=== PATIENT | male | born 1955 | race African-American/Black ===

== ENCOUNTER 2019-01-14 16:42 | Inpatient (IN) | payer MEDICAID ==
[~2019-01-14] VITALS: Ht 172.7 cm; Wt 54.9 kg
[2019-01-14] VITALS (7 sets, daily range): BP systolic 205–258; BP diastolic 118–151
--- NOTE | 2019-01-14 16:54 | NUR ---
ED Nurse Note: Patient was brought by RA 58, complaining of generalized pain. Verbalized /. Grimacing noted. Patient is moaning and yelling because of pain. Resident stated that he missed dialysis treatment for 1 week.
--- NOTE | 2019-01-14 17:02 | Emergency Room Report ---
History of Present Illness General Chief Complaint: Pain Present Illness HPI Patient is a 63-year-old male brought in by EMS after increased generalized body aches and pains. Patient reports having missed dialysis and was last dialyzed 4 days ago. Patient denies any fever. He states he was moving and could not make his appointments. Patient reports having generalized body pain. He cannot member the names of his doctors. Allergies: Coded Allergies: No Known Allergies (Unverified , 01/14/19) Patient History Past Medical History: see triage record Reviewed Nursing Documentation: PMH: Agreed; PSxH: Agreed Nursing Documentation-PMH Hx Hypertension: Yes Review of Systems All Other Systems: negative except mentioned in HPI Physical Exam Vital Signs Date Time Temp Pulse Resp B/P (MAP) Pulse Ox O2 Delivery O2 Flow Rate FiO2 01/14/19 16:42 98.2 82 18 241/149 (179) 98 Room Air Sp02 EP Interpretation: reviewed, normal General Appearance: alert, GCS 15, Chronically Ill Head: atraumatic ENT: normal ENT inspection, hearing grossly normal, normal voice Neck: normal inspection, full range of motion, supple, no bony tend Respiratory: normal inspection, lungs clear, normal breath sounds, no respiratory distress, no retraction, no wheezing Cardiovascular #1: regular rate, rhythm, no edema Gastrointestinal: normal inspection, normal bowel sounds, non tender, soft, no guarding, no hernia Genitourinary: no CVA tenderness Musculoskeletal: normal inspection, back normal, normal range of motion Neurologic: normal inspection, alert, oriented x3, responsive, ager operator III-XII nml as tested, speech normal Psychiatric: normal inspection, judgement/insight normal, mood/affect normal Procedures Critical Care Time Critical Care Time Patient had a critical medical condition which untreated could potentially result in life or limb threatening injury. Total critical care time excluding procedures approximately 45 minutes. Medical Decision Making Diagnostic Impression: Primary Impression: ESRD (end stage renal disease) Additional Impressions: Missed dialysis Hyperkalemia Hypertensive crisis, unspecified ER Course Patient presented for generalized pain and shortness of breath. Differential diagnosis include is not limited to have fluid overload, hyperkalemia, hypertensive crisis, myocardial infarction among others. Because of complexity of patient's case laboratory tests and imaging studies were ordered. Patient was noted to have significantly elevated blood pressure as well as recently missed dialysis. He was given multiple medications for hypertension with minimal change in his blood pressure. Chest x-ray 1 view read by radiology showed bilateral interstitial edema and problems consistent with fluid overload. See radiology report for full details. Patient given some pain medications due to discomfort.Patient was noted to be significantly hyperkalemic. Arterial blood gas showed some metabolic acidosis without evidence of respiratory alkalosis. Patient was started on BiPAP for fluid overload and shortness of breath with some improvement in his oxygen saturation.He was given insulin as well as D50 and Kayexalate as well as IV calcium. Dr. Dey was contacted for inpatient management. Dr. Castillo is contacted for nephrology consult for emergent dialysis Labs Test 01/14/19 17:22 01/14/19 18:40 01/14/19 19:50 White Blood Count 5.0 K/UL (4.8-10.8) Red Blood Count 5.23 M/UL (4.70-6.10) Hemoglobin 14.5 G/DL (14.2-18.0) Hematocrit 47.9 % (42.0-52.0) Mean Corpuscular Volume 92 FL (80-99) Mean Corpuscular Hemoglobin 27.7 PG (27.0-31.0) Mean Corpuscular Hemoglobin Concent 30.3 G/DL (32.0-36.0) Red Cell Distribution Width 18.2 % (11.6-14.8) Platelet Count 117 K/UL (150-450) Mean Platelet Volume 6.6 FL (6.5-10.1) Neutrophils (%) (Auto) 64.4 % (45.0-75.0) Lymphocytes (%) (Auto) 26.3 % (20.0-45.0) Monocytes (%) (Auto) 5.2 % (1.0-10.0) Eosinophils (%) (Auto) 3.1 % (0.0-3.0) Basophils (%) (Auto) 1.0 % (0.0-2.0) Prothrombin Time 10.4 SEC (9.30-11.50) Prothromb Time International Ratio 1.0 (0.9-1.1) Activated Partial Thromboplast Time 25 SEC (23-33) Sodium Level 143 MMOL/L (136-145) Potassium Level 6.5 MMOL/L (3.5-5.1) Chloride Level 104 MMOL/L (98-107) Carbon Dioxide Level 20 MMOL/L (21-32) Anion Gap 19 mmol/L (5-15) Blood Urea Nitrogen 92 mg/dL (7-18) Creatinine 19.5 MG/DL (0.55-1.30) Estimat Glomerular Filtration Rate 2.9 mL/min (>60) Glucose Level 102 MG/DL (74-106) Calcium Level 7.8 MG/DL (8.5-10.1) Total Bilirubin 0.5 MG/DL (0.2-1.0) Aspartate Amino Transf (AST/SGOT) 24 U/L (15-37) Alanine Aminotransferase (ALT/SGPT) 17 U/L (12-78) Alkaline Phosphatase 144 U/L (46-116) Troponin I 0.003 ng/mL (0.000-0.056) Total Protein 8.2 G/DL (6.4-8.2) Albumin 3.4 G/DL (3.4-5.0) Globulin 4.8 g/dL Albumin/Globulin Ratio 0.7 (1.0-2.7) Arterial Blood pH 7.363 (7.350-7.450) Arterial Blood Partial Pressure CO2 32.1 mmHg (35.0-45.0) Arterial Blood Partial Pressure O2 73.7 mmHg (75.0-100.0) Arterial Blood HCO3 17.9 mmol/L (22.0-26.0) Arterial Blood Oxygen Saturation 93.6 % (95-100) Arterial Blood Base Excess -6.5 (-2-2) Carroll Test Positive EKG Diagnostic Results Rate: normal Rhythm: NSR ST Segments: no acute changes Last Vital Signs Date Time Temp Pulse Resp B/P (MAP) Pulse Ox O2 Delivery O2 Flow Rate FiO2 01/14/19 16:42 98.2 82 18 241/149 (179) 98 Room Air Status: unchanged Disposition: ADMITTED INPATIENT Condition: Critical Duane Luna MD Jan 14, 2019 17:02
--- NOTE | 2019-01-14 17:30 | NUR ---
ED Nurse Note: RN attempted to establish IV, but unsucessful at this time. Report given to ARNOL Conti.
[2019-01-14 17:44] LABS: EOSINOPHILS % (AUTO) 3.1 % (0.0-3.0); HEMATOCRIT 47.9 % (42.0-52.0); HEMOGLOBIN 14.5 G/DL (14.2-18.0); LYMPHOCYTES % (AUTO) 26.3 % (20.0-45.0); MEAN CORPUSCULAR VOLUME 92 FL (80-99); MONOCYTES % (AUTO) 5.2 % (1.0-10.0); NEUTROPHILS % (AUTO) 64.4 % (45.0-75.0); PLATELET COUNT 117 K/UL (150-450); RED BLOOD COUNT 5.23 M/UL (4.70-6.10); RED CELL DISTRIBUTION WIDTH 18.2 % (11.6-14.8)
--- NOTE | 2019-01-14 17:50 | NUR ---
ED Nurse Note: noted pt uncontrolled BP, systolic above 200 and diastolic above 100s, ERMd notified, will follow up with order.
[2019-01-14] MEDS ORDERED: cloNIDine 0.2mg Tab ONE (17:55)
[2019-01-14] MEDS ORDERED: Morphine Sulfate 4mg/ml Inj (IV USE ONLY) ONE (17:55)
[2019-01-14] MEDS ORDERED: cloNIDine 0.2mg Tab ORAL ONE (18:00)
[2019-01-14] MEDS ORDERED: Morphine Sulfate 4mg/ml Inj (IV USE ONLY) IVP ONE ×2 (18:00→20:00)
[2019-01-14] MEDS ORDERED: Nitroglycerin Subl 0.4mg tab SL PRN (18:00)
[2019-01-14] MEDS ORDERED: DiphenhydrAMINE 50mg/ml Inj ONE (18:03)
[2019-01-14] MEDS ORDERED: CARVEDILOL12.5 MG ORAL (18:07)
[2019-01-14] MEDS ORDERED: RENAGEL800 MG ORAL (18:07)
[2019-01-14] MEDS ORDERED: LOSARTAN POTASS50 MG ORAL (18:07)
[2019-01-14] MEDS ORDERED: ADALAT10 MG ORAL (18:07)
[2019-01-14] MEDS ORDERED: LIPITOR80 MG ORAL (18:07)
[2019-01-14] MEDS ORDERED: DiphenhydrAMINE 50mg/ml Inj IVP ONE (18:15)
[2019-01-14] MEDS ORDERED: Albuterol ud Inhalation HHN ONE (18:30)
[2019-01-14] MEDS ORDERED: IBUPROFEN600 MG ORAL (18:39)
[2019-01-14] MEDS ORDERED: LABETALOL HCL100 MG ORAL (18:39)
[2019-01-14] MEDS ORDERED: AMLODIPINE BESY10 MG ORAL (18:39)
[2019-01-14] MEDS ORDERED: ZOFRAN4 M3 ORAL (18:39)
[2019-01-14] MEDS ORDERED: HYDRALAZINE HCL10 MG ORAL (18:39)
[2019-01-14] MEDS ORDERED: HEPARIN2000 UNIT/ IV (18:39)
--- NOTE | 2019-01-14 18:40 | NUR ---
ED Nurse Note: pt on bipap. 03/17, rate 12, 80%. will cont monitor.
[2019-01-14] MEDS ORDERED: CLONIDINE HCL0.1 MG PO (18:43)
[2019-01-14] MEDS ORDERED: ZEMPLAR5 MCG/ML IV (18:43)
[2019-01-14] MEDS ORDERED: LIQUACEL 100 LI30 ML PO (18:43)
--- NOTE | 2019-01-14 18:50 | NUR ---
ED Nurse Note: noted pt O2 97% on bipap and after breathing tx. will cont monitor.
[2019-01-14 19:08] LABS: ALANINE AMINOTRANSFERASE 17 U/L (12-78); ALBUMIN 3.4 G/DL (3.4-5.0); ALBUMIN/GLOBULIN RATIO 0.7 (1.0-2.7); ALKALINE PHOSPHATASE 144 U/L (46-116); ANION GAP 19 mmol/L (5-15); ASPARTATE AMINO TRANSFERASE 24 U/L (15-37); BILIRUBIN,TOTAL 0.5 MG/DL (0.2-1.0); BLOOD UREA NITROGEN 92 mg/dL (7-18); CALCIUM 7.8 MG/DL (8.5-10.1); CARBON DIOXIDE 20 MMOL/L (21-32); CHLORIDE 104 MMOL/L (98-107); CREATININE 19.5 MG/DL (0.55-1.30); SODIUM 143 MMOL/L (136-145)
--- NOTE | 2019-01-14 19:24 | Diagnostic Imaging Report ---
History: CP Exam: XR CXR 1 VIEW Comparison: None available FINDINGS: Moderate appearing bilateral ill-defined perihilar opacities which may represent pulmonary edema, clinically correlate. Right-sided tunneled dialysis catheter noted. The cardiac silhouette appears enlarged. Ectatic thoracic aorta. Note of cervical spinal hardware. IMPRESSION: Moderate appearing bilateral ill-defined perihilar opacities which may represent pulmonary edema, clinically correlate. Right-sided tunneled dialysis catheter noted. The cardiac silhouette appears enlarged.
[2019-01-14 19:50] LABS: POTASSIUM 6.5 MMOL/L (3.5-5.1)
--- NOTE | 2019-01-14 19:50 | NUR ---
ED Nurse Note: ERMD aware of pt's elevated potassium level, 6.5, will follow up with order.
--- NOTE | 2019-01-14 19:55 | NUR ---
ED Nurse Note: pt refusing to be on bipap, ERMD notified, pt was placed on o2 via nc. pt reports pain generalized bodyache, ermd notified will follow up with order.
[2019-01-14] MEDS ORDERED: Calcium Chloride 100mg/ml Vial IVP ONE (20:00)
[2019-01-14] MEDS ORDERED: Sodium Polystyrene Sulfonate 15gm Powder ORAL ONE (20:00)
[2019-01-14] MEDS ORDERED: Insulin Human Regular 100units/ml 3ml IV ONE (20:00)
[2019-01-14] MEDS ORDERED: Labetalol 200mg tab ORAL ONE (20:00)
[2019-01-14] MEDS ORDERED: Heparin Sod 1000 units/ml 10ml IV PRN (20:15)
--- NOTE | 2019-01-14 20:30 | NUR ---
ED Nurse Note: pt's blood pressure uncontrolled, persistent above 200/100s, ermd notified.
--- NOTE | 2019-01-14 20:50 | NUR ---
ED Nurse Note: noted pt's iv site on right hand with tendernss and mild swelling, ermd notified. ERMD at the bedside for iv insertion. 22 g R EJ inserted peripherally by ERMD, dressing applied. pt tolerated well.
[2019-01-14] MEDS ORDERED: Labetalol 5mg/ml 20ml vial IV ONE (21:00)
--- NOTE | 2019-01-14 21:00 | NUR ---
ED Nurse Note: pt refused vre/cre swab. pt verbalized understanding.
--- NOTE | 2019-01-14 21:05 | NUR ---
ED Nurse Note: ermd aware of pt's blood pressure after administration of medication (refer to EMAR), will follow up with order.
--- NOTE | 2019-01-14 21:20 | History & Physical ---
History and Physical History & Physicial History and Physical HPI Patient is a 63-year-old male with history of CKD on HD, Hypertension, admitted c/o generalized body aches and pains. Patient reports having missed dialysis and was last dialyzed 4 days ago. Patient denies any fever. No current chest pain, some shortness of breath, noted to be fluid overloaded, hyperkalemic in the ED Allergies: No Known Allergies Past Medical History: CKD, HD, Hypertension All Other Systems: negative except mentioned in HPI Physical Exam Vital Signs Noted Date Time Temp Pulse Resp B/P (MAP) Pulse Ox O2 Delivery O2 Flow Rate FiO2 01/14/19 16:42 98.2 82 18 241/149 (179) 98 Room Air General Appearance: alert, GCS 15, Chronically Ill Head: atraumatic ENT: normal ENT inspection, hearing grossly normal, normal voice Neck: normal inspection, full range of motion, supple, no bony tend Respiratory: normal inspection, lungs clear, normal breath sounds, no respiratory distress, no retraction, no wheezing Cardiovascular: regular rate, rhythm, no edema, HS1, HS2 normal Gastrointestinal: normal inspection, normal bowel sounds, non tender, soft, no guarding, no hernia Genitourinary: no CVA tenderness Musculoskeletal: normal inspection, back normal, normal range of motion Neurologic: normal inspection, alert, oriented x3, responsive, report manager III-XII nml as tested, speech normal Psychiatric: normal inspection, judgement/insight normal, mood/affect normal Impression: CKD Missed HD Volume overloaded, hyperkalemic Hypertension Plan: Urgent HD, ED has contacted Dr Hernandez Antihypertensives Monitor labs PPX O2/Bipap EKG LVH, SR, no acute changes CXR Pulmonary congestion, Labs Noted, Ranulfo Henley MD Jan 14, 2019 21:20
--- NOTE | 2019-01-14 21:26 | NUR ---
ED Nurse Note: report given to Rn HECTOR from ICU (SDU overflow.
--- NOTE | 2019-01-14 21:30 | NUR ---
ED Nurse Note: pt transferred to ICU (SDU) over flow and report was given to RN Radhika and endorsed care, belongings sent w/ pt w/ completed list, iv intact and patent, receiving rn aware of pt's condition. called RT for transfer of bipap as well. pt on o2 via NC = 4L/min at this time, sinus rhythm on fabrication technician. receiving rn notified pt refused cre vre swab as well.
--- NOTE | 2019-01-14 21:40 | NUR ---
NURSE NOTES: Admitted 63 year old male patient from ER. Endorsement received from ARNOL Conti. Patient awake, oriented x3. On 3 LPM nasal cannula. Right subclavian permacath, right EJ g 22, right hand g20. Right EJ noted with good blood return. Right hand heplock with pain when flushed, removed. Skin is intact. Head of bed elevated bed alarm on. Locked and in low position. Call light placed within visible reached. Instructed patient on how to use call light, verbalized understanding.
--- NOTE | 2019-01-14 22:00 | NUR ---
NURSE NOTES: With Stat dialysis orders from Dr. Felipe. Called the [facility] and spoke with Neeta. As per her she will call the pulmonology physician dialysis nurse and will send someone velasquez.
[2019-01-14] MEDS ORDERED: Sodium Polystyrene Sulfon/Sorb 15gm/60ml Susp ORAL ONE (22:15)
[2019-01-14] MEDS ORDERED: Nitroglycerin 50mg/250ml btl 250 ML IV PRN (22:15)
--- NOTE | 2019-01-14 22:15 | NUR ---
NURSE NOTES: Received admission orders per telephone from Dr. Henley. Orders read back and confirmed by the MD.
[2019-01-14] MEDS ORDERED: Metoprolol Tartrate 50mg tab ORAL ONE (22:30)
--- NOTE | 2019-01-14 22:30 | NUR ---
NURSE NOTES: Patient refused VRE and CRE swabs, also refused BiPAP. 99% saturation on the monitor. Risks and benefits explained x3, still refused. Patient's rights respected.
--- NOTE | 2019-01-14 23:00 | NUR ---
NURSE NOTES: Followed up with [facility] regarding ETA for the dialysis, as per them someone is already on their way to [facility]
[2019-01-15] VITALS (50 sets, daily range): BP systolic 142–241; BP diastolic 83–166
--- NOTE | 2019-01-15 | NUR ---
NURSE NOTES: Patient awake. PRN medication for BP not given due to pending STAT dialysis. Still reports of being cold, temperature 97.5. Continues on warming blanket.
--- NOTE | 2019-01-15 00:30 | NUR ---
NURSE NOTES: Called [facility] to follow up regarding the dialysis. As per the staff, the dialysis nurse is currently having a patient right now and will be at [facility] after he's done.
--- NOTE | 2019-01-15 01:00 | NUR ---
NURSE NOTES: Dialysis nurse at bedside
--- NOTE | 2019-01-15 03:00 | NUR ---
NURSE NOTES: Dialysis done, as per HD nurse 1L output. SBP still at 200s mmHG. PRN Hydralazine given.
--- NOTE | 2019-01-15 04:30 | NUR ---
NURSE NOTES: Patient restless and shouting. Reoriented patient, assessed for needs. Patient does not report any pain. Vomited about 100 ml clear to light brownish sputum. PRN Zofran given. IV access dislodged. Attempted to insert a new one, however unsuccessful. Dr. Casiano will come and insert an IV access.
--- NOTE | 2019-01-15 05:00 | NUR ---
NURSE NOTES: IV g [address] Casiano at right EJ. Nitroglycerin restarted at 10mcg/min.
[2019-01-15 05:28] LABS: BASOPHILS % (AUTO) 0.4 % (0.0-2.0); EOSINOPHILS % (AUTO) 0.1 % (0.0-3.0); HEMATOCRIT 45.3 % (42.0-52.0); HEMOGLOBIN 14.1 G/DL (14.2-18.0); LYMPHOCYTES % (AUTO) 12.9 % (20.0-45.0); MEAN CORPUSCULAR VOLUME 90 FL (80-99); MONOCYTES % (AUTO) 5.1 % (1.0-10.0); NEUTROPHILS % (AUTO) 81.6 % (45.0-75.0); PLATELET COUNT 124 K/UL (150-450); RED BLOOD COUNT 5.06 M/UL (4.70-6.10); RED CELL DISTRIBUTION WIDTH 19.4 % (11.6-14.8); WHITE BLOOD COUNT 7.3 K/UL (4.8-10.8)
[2019-01-15 06:04] LABS: ANION GAP 18 mmol/L (5-15); BLOOD UREA NITROGEN 87 mg/dL (7-18); CALCIUM 8.4 MG/DL (8.5-10.1); CARBON DIOXIDE 21 MMOL/L (21-32); CHLORIDE 104 MMOL/L (98-107); CREATININE 19.1 MG/DL (0.55-1.30); SODIUM 143 MMOL/L (136-145)
--- NOTE | 2019-01-15 06:26 | NUR ---
NURSE NOTES: K is 6.0, paged Dr. Felipe on his emergency pager. Awaiting for return call
--- NOTE | 2019-01-15 07:01 | NUR ---
HAND-OFF: Report given to Mercy Hernandez RN.
--- NOTE | 2019-01-15 07:02 | NUR ---
NURSE NOTES: Received patient from ARNOL Garrido. Patient blood pressure is elevated at 180/110. Patient was given multiple medications to reduce the blood pressure but it remains elevated. Patient is now on Nitroglycerin drip at 20mcg/min. Will continue to monitor blood pressure and titrate drip per protocol. Patient denies pain, nausea, or discomfort at this time. Patient states that he is cold. Temperature 98.3 at this time. Bear hugger set up for patient per patient request. Patient alert to date, time, person, place, and purpose. Patient on 3L nasal cannula. Rhonchi audible in all lobes. Patent denies respiratory distress and states that he feels he is breathing much better than last night. Patient oxygen saturation 99% and RR 15 at this time. Patient has permicath for hemodialysis on right upper chest. dressing intact but not correct dressing for central line. Will change to proper dressing when possible. Patient has right external jugular peripheral IV 30 gauge that is patent, asymptomatic, and running nitroglycerin drip at 20mcg/hr at this time. Patient uses urinal. Patient has serum potassium level of 6.[address] Hernandez has been paged. Will page doctor again at this time. Will continue to monitor and administer medications as ordered. Patient repositions on his own. Toothbrush and toothpaste offered.
--- NOTE | 2019-01-15 07:32 | NUR ---
NURSE NOTES: Paged Dr Hernandez regarding potassium 6.0, consistent elevated blood pressure above 160, serum BUN 87, and Creatinine 19.1. Awaiting call back at this time. Addendum: 01/15/19 at 1044 by Mercy Hernandez RN Dr Hernandez called back. Updated him regarding lab values stated above and notified him that Dr Henley ordered Kayexalate 15g once. Dr Hernandez stated that he would order dialysis for the patient.
--- NOTE | 2019-01-15 07:50 | NUR ---
NURSE NOTES: Called and spoke with Dr Henley. Notified him regarding Potassium serum value of 6.0 this morning, consistent elevated blood pressure >170 systolic, and absence of GI and DVT prophylaxis medication. Received telephone order for clonidine 0.2mg PO PRN Q8Hr for blood pressure over 160, Kayexalate 15grams PO once now, Protonix 40mg PO daily, and heparin 5000units SQ BID. Orders read back, verified, and placed at this time.
[2019-01-15] MEDS: Sodium Polystyrene Sulfonate 15gm Powder ORAL SCH ×2 (08:00→08:16)
--- NOTE | 2019-01-15 09:25 | NUR ---
NURSE NOTES: Called [facility] to report hemodialysis scheduled for today routine between 6am and 6pm. Also reported that patient has serum potassium level of 6.0 this morning and dialysis should be performed soon. Awaiting call back and confirmation from dialysis nurse.
[2019-01-15] MEDS: Metoprolol Tartrate 50mg tab ORAL SCH ×2 (09:39→20:44)
[2019-01-15] MEDS: Heparin 5000 units/ml inj SUBQ SCH ×2 (09:43→20:45)
--- NOTE | 2019-01-15 09:47 | NUR ---
NURSE NOTES: Kayexalate scanned and mixed in water at this time. Patient refusing to drink it at this time. The purpose of this medication was thoroughly explained to the patient in addition to the complications that may result if his potassium remains elevated. The charge nurse and myself stressed to the patient the importance of this medication. Patient states that he understands but does not wish to take the medication at this time. Patient states that he will take the medication a little later. Will continue to stress the importance of this medication and dispose of the medication if the patient continues to refuse it.
--- NOTE | 2019-01-15 10:00 | NUR ---
NURSE NOTES: Patient Blood pressure 216/112 at this time. Clonidine 0.2mg given over an hour ago with no effect on blood pressure. Called and left message on Dr Henley emergency line. Awaiting call back. Nitro drip increased to 35mcg/min at this time. Will administer Hydralazine as ordered at this time. Will continue to monitor.
--- NOTE | 2019-01-15 11:20 | NUR ---
NURSE NOTES: Spoke with Dr Dent regarding patient's condition. Notified him regarding patient's elevated blood pressure. Doctor stated that the patient is not to be given blood pressure medications at all until after hemodialysis even if systolic blood pressure reaches 250mmHg. Notified him that the patient is on Nitroglycerin drip. Dr Dent ordered that Nitro drip be stopped. IV infusion stopped and line flushed at this time.
[2019-01-15] MEDS ORDERED: Miralax 17gm pkt ORAL PRN (11:30)
--- NOTE | 2019-01-15 11:35 | NUR ---
NURSE NOTES: Called [facility] to report hemodialysis scheduled for tomorrow 01/16 between 6am and 6pm. They reported that they would send the message to the dialysis nurse. Notified them that I have not yet received a call from the dialysis nurse regarding dialysis scheduled for today. They reported that they would ask for the dialysis nurse to call to confirm the time he/she will be arriving today.
[2019-01-15] MEDS: HydrALAZINE 50mg tab ORAL SCH ×2 (12:00→18:44)
--- NOTE | 2019-01-15 12:00 | NUR ---
NURSE NOTES: Patient blood pressure remains elevated at 180/108. All blood pressure medications held at this time per Dr Dent. Dr Dent is aware of BP. Will continue to monitor blood pressure. Patient states that he has pain 10/10 throbbing from head to toe at this time. Bear hugger still being used but patient temperature remains stable at 98.3. Patient alert to date, time, person, place, and purpose. Patient on 3L nasal cannula with oxygen saturation of 99% at this time. Patient denies respiratory distress. Rhonchi remains audible in all lobes. Permicath for hemodialysis on right upper chest remains asymptomatic with dressing intact. Will endorse to dialysis nurse to change central line dressing. Right external jugular peripheral IV 30 gauge remains patent, asymptomatic, and saline locked at this time. Patient uses urinal at bedside. Patient refused breakfast and lunch and has drank very little PO fluids. Patient self regulates PO fluid intake. Patient has serum potassium level of 6.0 this morning. Dialysis scheduled for today. Awaiting call back from dialysis nurse. Will continue to monitor and administer medications as ordered. Patient repositions on his own.
--- NOTE | 2019-01-15 12:09 | Pulmonolgy Critical Care Note ---
Critical Care - Asmt/Plan Assessment/Plan: Pulmonary CCM Progress Note HPI Patient is a 63-year-old male with history of CKD on HD, Hypertension, admitted c/o generalized body aches and pains. 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 No current chest pain, some shortness of breath, noted to be fluid overloaded, hyperkalemic in the ED Improved sp HD Allergies: No Known Allergies Past Medical History: CKD, HD, Hypertension All Other Systems: negative except mentioned in HPI Physical Exam Vital Signs Noted General Appearance: alert, GCS 15, Chronically Ill Head: atraumatic ENT: normal ENT inspection, hearing grossly normal, normal voice Neck: normal inspection, full range of motion, supple, no bony tend Respiratory: normal inspection, lungs clear, normal breath sounds, no respiratory distress, no retraction, no wheezing Cardiovascular: regular rate, rhythm, no edema, HS1, HS2 normal Gastrointestinal: normal inspection, normal bowel sounds, non tender, soft, no guarding, no hernia Genitourinary: no CVA tenderness Musculoskeletal: normal inspection, back normal, normal range of motion Neurologic: normal inspection, alert, oriented x3, responsive, dental equipment repairer III-XII nml as tested, speech normal Psychiatric: normal inspection, judgement/insight normal, mood/affect normal Impression: CKD Volume overloaded, hyperkalemia - improving Hypertension Plan: HD per Renal Antihypertensives Monitor labs PPX O2/Bipap EKG LVH, SR, no acute changes CXR Pulmonary congestion, Labs Noted, Critical Care - Objective Last 24 Hour Vital Signs Date Time Temp Pulse Resp B/P (MAP) Pulse Ox O2 Delivery O2 Flow Rate FiO2 01/15/19 10:13 216/112 01/15/19 09:39 76 201/126 01/15/19 09:39 86 201/126 01/15/19 08:54 96 Nasal Cannula 4.0 36 01/15/19 08:16 201/109 01/15/19 06:45 77 18 211/106 (141) 100 01/15/19 06:30 78 15 172/118 (136) 100 01/15/19 06:15 82 16 170/118 (135) 100 01/15/19 06:00 84 17 212/130 (157) 100 01/15/19 05:45 83 14 204/129 (154) 100 01/15/19 05:30 85 15 181/122 (141) 98 01/15/19 05:15 87 17 191/122 (145) 98 01/15/19 05:00 94 16 226/135 (165) 99 01/15/19 04:45 97 22 216/139 (164) 99 01/15/19 04:30 94 20 228/125 (159) 94 01/15/19 04:21 226/165 01/15/19 04:00 97.3 96 27 236/138 (170) 92 01/15/19 04:00 3.0 01/15/19 04:00 81 01/15/19 04:00 Nasal Cannula 3.0 01/15/19 03:31 242/136 01/15/19 03:00 88 19 232/144 (173) 97 01/15/19 02:00 83 19 241/166 (191) 94 01/15/19 01:00 93 28 235/166 (189) 96 01/15/19 00:00 77 01/15/19 00:00 Nasal Cannula 3.0 01/15/19 00:00 3.0 01/15/19 00:00 97.5 91 23 220/138 (165) 98 01/14/19 23:10 100 207/130 01/14/19 23:10 97 207/130 01/14/19 23:00 87 23 207/130 (155) 98 01/14/19 22:51 Nasal Cannula 3.0 01/14/19 21:55 97.5 85 26 235/151 (179) 99 01/14/19 21:52 87 01/14/19 21:45 87 01/14/19 21:30 97.9 68 26 246/118 91 Nasal Cannula 4.0 01/14/19 21:00 95 256/149 01/14/19 20:40 98.2 89 28 258/144 97 5.0 01/14/19 20:40 258/144 01/14/19 20:39 97.5 01/14/19 20:09 72 245/139 01/14/19 19:58 245/153 01/14/19 19:30 97.9 88 18 236/146 97 Bi-pap 80 01/14/19 18:55 96 18 97 Bi-Pap 80 01/14/19 18:54 98.2 99 16 205/123 97 Bi-pap 80 01/14/19 18:44 28 01/14/19 18:42 95 18 98 Nasal Cannula 2.0 28 01/14/19 18:40 100 15 96 Facial 80 01/14/19 18:26 98.2 01/14/19 18:20 97.5 92 26 205/143 89 Nasal Cannula 5.0 01/14/19 18:19 253/118 01/14/19 18:03 243/108 01/14/19 17:30 98.2 88 26 243/118 93 Nasal Cannula 5.0 01/14/19 17:30 88 26 Nasal Cannula 5.0 01/14/19 16:42 98.2 82 18 241/149 (179) 98 Room Air Critical Care - Subjective ROS Limited/Unobtainable: No Condition: improving FI02: 36 Sputum Amount: None I&O: Intake and Output 01/14/19 01/15/19 19:00 07:00 Intake Total 10 ml 13.5 ml Output Total 1100 ml Balance 10 ml -1086.5 ml Intake IV Total 10 ml 13.5 ml Output Emesis 100 ml Hemodialysis UF 1000 ml # Voids 1 Ranulfo Henley MD Jan 15, 2019 12:09
--- NOTE | 2019-01-15 13:56 | NUR ---
NURSE NOTES: 3rd attempt to contact the [facility] RN. Requested a phone call back. Stated that drying equipment operator will call MD if no call returned within 15 min.
--- NOTE | 2019-01-15 14:03 | NUR ---
NURSE NOTES: Spoke to Joseph, HD RN. Per HD RN, stated, could not repeat HD so soon, however, patient did not receive full HD previously. Per MD, all HTN meds are to be held until HD tx completed. Per HD RN, Joseph said to administer however, consulting psychiatrist stated that will follow MD orders. HD RN stated that he will contact MD. Will continue to follow MD plan of care. Will await MD to call back with any changes of plan.
--- NOTE | 2019-01-15 15:24 | NUR ---
NURSE NOTES: Dialysis nurse has arrived. Patient blood pressure 162/93. MD aware and does not want blood pressure medication given. Will continue to monitor.
--- NOTE | 2019-01-15 16:00 | NUR ---
NURSE NOTES: Patient blood pressure remains elevated at 174/107. All blood pressure medications held at this time per Dr Dent until after dialysis. Patient getting dialysis at this time. Will continue to monitor blood pressure and administer medication post dialysis. Patient states that his pain has improved. Temperature remains stable at 98.3. Bear hugger removed as another patient needs it. Patient alert to date, time, person, place, and purpose but drowsy at this time. Patient on 3L nasal cannula with oxygen saturation of 99% at this time. Patient still denies respiratory distress. Rhonchi remains audible in all lobes. Permicath for hemodialysis on right upper chest remains asymptomatic with dressing intact and changed by dialysis nurse at this time. Right external jugular peripheral IV 30 gauge remains patent, asymptomatic, and saline locked at this time. Patient uses urinal at bedside. Will continue to monitor and administer medications as ordered. Patient repositioned on his own.
[2019-01-15] MEDS ORDERED: Cathflo Alteplase 2mg Inj INJ ONE (16:30)
[2019-01-15] MEDS ORDERED: Cathflo Alteplase 2mg Inj INJ SCH (16:45)
--- NOTE | 2019-01-15 18:40 | NUR ---
NURSE NOTES: Patient is requesting to leave AMA. Will call the MD to notify. States he needs to get home to take care of his children. Patient is adamant to leave.
--- NOTE | 2019-01-15 18:49 | NUR ---
CASE MANAGEMENT: INITIAL REVIEW 63 YO M PHU FROM HOME CC: MISSED HD X4 DAYS AGO PMHx: ESRD SI:ESRD. MISSED HD. T 98.2 HR 82 RR 18 B/P 241/149 SATS 98% ON RA CL 6.5 CO2 20 BUN 92 CR 19.5 CA 7.8 ALP 144 ABGs PCO2 32.1 PO2 73.7 HCO3 17.9 O2 SATS 93.6 BE -6.5 IS: MORPHINE IV X1 CLONIDINE PO X1 BENADRYL IV X1 ALBUTEROL HHN X1 LASIX IV X1 PATIENT ADMITTED TO ICU 01/14/2019 @ 1937 DCP: PATIENT TO BE DISCHARGED TO HOME ONCE MEDICALLY CLEARED. PLAN OF CARE: NEPHRO CONSULT Addendum: 01/15/19 at 1945 by Ayaka Tejada CM INTERQUAL MET
--- NOTE | 2019-01-15 18:59 | NUR ---
HAND-OFF: Report given to ARNOL Shetty. Hemodialysis complete at this time. 3L output per dialysis nurse. Patient now reporting that he wants to go home as soon as possible. Endorsed to follow up.
--- NOTE | 2019-01-15 19:00 | NUR ---
NURSE NOTES: Spoke to Dr Henley and advised that patient will be leaving AMA. Advised that patient was educated on the risks of leaving. Dr Henley understood.
--- NOTE | 2019-01-15 19:01 | NUR ---
NURSE NOTES: Patient requested voucher however cannot obtain one due to status of AMA. Requested to speak to someone other than neuropathologist. House Sup was called. Pt wants to speak to House Sup in person. Does not have the means to pay for transportation home but requests to leave AMA due to social situation with children. Patient very tearful. Explained that SW is not available.
--- NOTE | 2019-01-15 19:37 | NUR ---
HAND-OFF: Report given to ARNOL Domínguez. Patient still stating that he needs to go home. Endorsed to follow up. MD does not want to discharge the patient.
--- NOTE | 2019-01-15 19:40 | NUR ---
NURSE NOTES: Received report from Mercy Hernandez RN. Patient in bed awake,alert able to verbalize needs to staff. denies any pain or discomfort. Per Report patient wanted to go AMA encouraged patient to verbalized needs,fears and feelings to staff per patient stated " I don't need another dialysis i feel better and I will not sign AMA" explained the importance v/s risk and benefits of staying in the hosp but patient strongly refused to stay with loud voice. Charge nurse aware waiting for the Catalyst Plant Supervisor to talk to patient. per previous nurse Dr. Henley will not discharge patient, patient aware. Right EJ intact. with PermCath on right subclavian for dialysis access. Instructed patient to use call light for assistance. bed alarm on. bed locked and in low position. will continue to monitor patient.
[2019-01-15] MEDS ORDERED: Dyna-Hex 2% Top Sol 2oz TOPIC SCH (20:00)
--- NOTE | 2019-01-15 20:14 | NUR ---
NURSE NOTES: House Sup unable to provide vouchers. Pt is very upset and states that he will not sign AMA however states that he wants to still leave once he is rested enough to leave. Will fill out AMA form to properly document that patient was AAO x 4 and has been counseled on the risks of his leaving at his own request. The liability of his leaving is at his request. Patient has been fully counseled as to his SBP >165 since beginning of shift and his feeling weak. Patient responded that he understands but still wants a voucher despite not being given one by Lead Electrical Engineer.
--- NOTE | 2019-01-15 20:30 | History and Physical Report ---
DATE OF ADMISSION: 01/14/2019 CHIEF COMPLAINT/REASON FOR HOSPITALIZATION: The patient admitted with hyperkalemia, azotemia, weakness, nausea, vomiting, missed dialysis. HISTORY OF PRESENT ILLNESS: The patient is a 63-year-old man with severe hypertension, prior episodes of missed dialysis, who comes with the above symptoms. He is a poor historian. Records are reviewed. He feels generally weak and not well. Nausea and vomiting is his major complaint. He was hospitalized elsewhere with generalized pain and similar symptoms. ALLERGIES: None known. PAST SURGICAL HISTORY: Apparently C3-C4 decompression in 07/2018. HABITS: He is a cigarette smoker, he states 4 cigarettes a day, plus he smokes marijuana. Denies alcohol or drugs, but prior notes he has polysubstance abuse. MEDICATIONS: He cannot give me a list, but according to the chart records, he takes Liquacel 60 mL t.i.d., amlodipine 20 mg daily, atorvastatin 40 mg daily, carvedilol 12.5 every 12 hours, clonidine 0.1 uncertain dose, hydralazine 10 mg q.i.d., Motrin 600 mg q.6 h. p.r.n., labetalol 100 mg daily, losartan 50 mg daily, nifedipine 90 mg daily, ondansetron 4 mg p.r.n., Zemplar 6 mcg 3 times a week, Renvela 800 three times a day, it is not clear in his medical records. SYSTEM REVIEW: HEAD, EYES, EARS, NOSE, THROAT: Vision and hearing is good. ENDOCRINE: No known diabetes or thyroid disease. PULMONARY: History of smoking as above. Denies shortness of breath. CARDIAC: History of severe hypertension. Denies PR. He has had elevated troponins likely from renal failure in the past. GASTROINTESTINAL: Nausea and vomiting as above when he missed his dialysis. No history of GI bleeding. GENITOURINARY: He makes a little urine. NEUROLOGIC: No CVA or seizures. PHYSICAL EXAMINATION: GENERAL: The patient is alert, thin, and in no acute distress. VITAL SIGNS: Blood pressure 201/126, pulse-ox 96%. GENERAL: He is alert and responsive. Chronically ill-appearing. HEAD, EYES, EARS, NOSE, AND THROAT: Sclerae are nonicteric. Ocular motions intact in all directions. Oral mucosa moist. NECK: No adenopathy or thyroid enlargement. LUNGS: Clear. HEART: Rhythm is regular. There is increased S2. No murmur heard. ABDOMEN: Soft without organomegaly or masses. EXTREMITIES: No edema, cyanosis, or clubbing. PERTINENT LABORATORY DATA: Show potassium is 6.5 6.0, BUN 92, creatinine 12.5. Troponin 0.003. Albumin is 3.4. Chest x-ray was done and shows right-sided dialysis catheter, bilateral ill-defined perihilar opacities which may represent pulmonary edema. IMPRESSION: 1. End-stage renal disease, status post missed dialysis. 2. Congestive heart failure, acute on chronic. 3. Hyperkalemia. 4. History of substance abuse. 5. Nausea and vomiting secondary to uremia. 6. Malignant hypertension. PLAN: The patient will be dialyzed serially. Fluid removal. Blood pressure control. He apparently is homeless, which is to be addressed with the social media editor. Bhupendra Dent M.D. DR: PONCHO JOB#: [id number] CC:
--- NOTE | 2019-01-15 21:45 | NUR ---
NURSE NOTES: Spoke with patient regarding his condition and wanting to go AMA. explained to patient that he's not stable enough to go home or AMA, BP elevated, oxygen needs to monitor in case patient needs oxygen at home and explained to patient the risk and benefits of staying to hospital, encouraged patient to verbalized needs, fears and feelings to staff. per patient will take the nurse advice and will talk to MD in am regarding the uncontrolled blood pressure, patient requesting something for sleep. will call MD Charge nurse and supervisor television chassis repair made aware.
--- NOTE | 2019-01-15 21:46 | NUR ---
NURSE NOTES: Called Dr. Henley and made aware of patient will not go AMA tonight Dr Henley gave order for Ambien 5 mg 1 tab po QHS PRN noted and carried out.
[2019-01-15] MEDS ORDERED: Zolpidem 5mg tab ORAL PRN (22:00)
--- NOTE | 2019-01-15 22:03 | NUR ---
NURSE NOTES: Patient complained of insomnia, talk therapy provided, offered warm milk, repositioned and turn off the light not effective. Ambien 5 mg 1 tab po given will monitor patient.
--- NOTE | 2019-01-15 22:12 | NUR ---
NURSE NOTES: Patient BP 171/97 instructed patient to do deep breathing, repositioned in bed not effective. Clonidine 0.2mg tab po given will rechecked BP. Addendum: 01/16/19 at 0621 by ULISES RUIZ RN late entry offered BIPAP to patient explained the importance v/s risk and benefits patient refused. charge nurse and RT aware. Patient oxygen saturation room air 95-96%.
--- NOTE | 2019-01-15 23:12 | NUR ---
NURSE NOTES: Rechecked BP after Clonidine PRN BP 142/83. patient in bed sleeping comfortably. call light within easy reach. no s/s of hypo/hyperglycemia. will continue to monitor patient.
[2019-01-16] VITALS (17 sets, daily range): BP systolic 137–184; BP diastolic 80–111
[2019-01-16] MEDS: HydrALAZINE 50mg tab ORAL SCH ×3 (01:01→11:14)
--- NOTE | 2019-01-16 01:23 | NUR ---
NURSE NOTES: patient in bed sleeping comfortably. No SOB oxygen saturation 95%. HOB elevated BP 138/86 HR 77. Call light within easy reach. No s/s of acute distress noted. Frequent visual checks continued. will continue to monitor patient.
--- NOTE | 2019-01-16 03:20 | NUR ---
NURSE NOTES: Patient in bed sleeping comfortably. with x1 episode of urinating 1cc urine, uses urinal. no s/s of acute distress noted. frequent visual checks continued. Call light within easy reach. frequent visual checks continued. Will continue plan of care.
--- NOTE | 2019-01-16 05:20 | NUR ---
NURSE NOTES: Patient requested cranberry juice with ice, drank 120cc tolerated well. Patient verbalizes that he is happy because he is able to sleep. No SOB. BP 147/90. Bed alarm on. bed lock and in low position. Frequent visual checks continued. All needs attended promptly.
[2019-01-16 06:38] LABS: BASOPHILS % (AUTO) 1.5 % (0.0-2.0); EOSINOPHILS % (AUTO) 1.9 % (0.0-3.0); HEMATOCRIT 39.4 % (42.0-52.0); HEMOGLOBIN 12.2 G/DL (14.2-18.0); LYMPHOCYTES % (AUTO) 22.1 % (20.0-45.0); MEAN CORPUSCULAR VOLUME 90 FL (80-99); MONOCYTES % (AUTO) 9.6 % (1.0-10.0); PLATELET COUNT 102 K/UL (150-450); RED BLOOD COUNT 4.39 M/UL (4.70-6.10); WHITE BLOOD COUNT 4.3 K/UL (4.8-10.8)
[2019-01-16 06:58] LABS: ANION GAP 15 mmol/L (5-15); BLOOD UREA NITROGEN 77 mg/dL (7-18); CALCIUM 8.2 MG/DL (8.5-10.1); CARBON DIOXIDE 22 MMOL/L (21-32); CHLORIDE 102 MMOL/L (98-107); CREATININE 18.2 MG/DL (0.55-1.30); SODIUM 139 MMOL/L (136-145)
[2019-01-16 07:10] LABS: POTASSIUM 6.4 MMOL/L (3.5-5.1)
--- NOTE | 2019-01-16 07:30 | NUR ---
HAND-OFF: Report given to ARNOL Lund. 6am Hydralazine not given. per Dr. Dent order hold on all BP meds on dialysis days until post dialysis even if High BP.
--- NOTE | 2019-01-16 07:47 | NUR ---
NURSE NOTES: Received the patient from ARNOL Feliciano. Patient is awake, alert and orientedx4, watching TV in bed. Patient on room air, O2 sat 95%. No acute distress noted. SR 80s noted on electronic device monitor. Right subclavian permacath and right EJ 20G intact, dressing i/c/d. Patient for dialysis today. Bed in lowest position, locked, side rails upx3. Bed alarm on. Call light within reach. Will continue to monitor.
[2019-01-16] MEDS: Metoprolol Tartrate 50mg tab ORAL SCH (08:29)
[2019-01-16] MEDS: Heparin 5000 units/ml inj SUBQ SCH (08:44)
--- NOTE | 2019-01-16 09:30 | NUR ---
NURSE NOTES: Dr. Dent made aware of K 6.4. No new orders at this time. MD to see the patient.
--- NOTE | 2019-01-16 09:30 | NUR ---
NURSE NOTES: patient asleep at this time. No distress noted. No s/sx of pain noted at this time. O2 sat 96% on room air.
--- NOTE | 2019-01-16 09:45 | NUR ---
NURSE NOTES: Late entry. Patient requested help with renal diet once discharge. RAFI came to the unit. Spoke to RAFI Shetty and explained the patient's living situation and weight loss/hyperK+. RAFI Shetty had orders for consult. Patient was introduced to Sena for warm hand off and all issues discussed.
--- NOTE | 2019-01-16 10:00 | NUR ---
NURSE NOTES: Nutrition patient education given by RD at bedside. Patient verbalized understanding.
--- NOTE | 2019-01-16 10:49 | NUR ---
NURSE NOTES: Patient awake, in stable condition. HD initiated. HD nurse at bedside.
--- NOTE | 2019-01-16 11:05 | NUR ---
RD ASSESSMENT & RECOMMENDATIONS SEE CARE ACTIVITY FOR COMPLETE ASSESSMENT DAILY ESTIMATED NEEDS: Needs based on ESRD w/ HD, wt loss; 55kg 30-35 kcals/kg 1,650- 1,925 total kcals 1.2-1.8 g protein/kg 66- 99 g total protein fluid per MD- on HD NUTRITION DIAGNOSIS: Increased kcal and pro needs r/t renal dysfunction and reported wt loss AEB pt ESRD, on HD, reports 50# wt loss in 2 yrs, 29% unfavorable wt change. (CURRENT DIET:Renal, Cardiac) PO DIET RECOMMENDATIONS: Renal (low K, low Na, low Phos) ADDITIONAL RECOMMENDATIONS: Diet edu provided 01/16/19 Add high protein snacks in btwn meals Nepro, 1 tetra pack BID Obtain standing wt post HD + daily wts
[2019-01-16] MEDS ORDERED: Heparin Sod 1000 units/ml 10ml IV PRN (11:30)
--- NOTE | 2019-01-16 11:54 | NUR ---
CASE MANAGEMENT: REVIEW 01/16/2019 SI:ESRD. MISSED HD. T 98 HR 85 RR 20 B/P 167/99 SATS 100% ON RA WBC 4.3 K 6.4 BUN77 CR 18.2 CA 8.2 IS: PROCARDIA PO BID LOPRESSOR PO Q12H HYDRALAZINE PO Q6H ICU STATUS DCP: PATIENT TO BE DISCHARGED TO HOME ONCE MEDICALLY CLEARED. PLAN OF CARE: HD
--- NOTE | 2019-01-16 12:48 | Pulmonolgy Critical Care Note ---
Critical Care - Asmt/Plan Assessment/Plan: Pulmonary CCM Progress Note HPI Patient is a 63-year-old male with history of CKD on HD, Hypertension, admitted c/o generalized body aches and pains. Patient reports having missed dialysis and was last dialyzed a few days DIRECTOR UNDERWRITER SALES Patient denies any fever. No current chest pain, some shortness of breath, noted to be fluid overloaded, hyperkalemic in the ED Improved sp HD Allergies: No Known Allergies Past Medical History: CKD, HD, Hypertension All Other Systems: negative except mentioned in HPI Physical Exam Vital Signs Noted General Appearance: alert, GCS 15, Chronically Ill Head: atraumatic ENT: normal ENT inspection, hearing grossly normal, normal voice Neck: normal inspection, full range of motion, supple, no bony tend Respiratory: normal inspection, lungs clear, normal breath sounds, no respiratory distress, no retraction, no wheezing Cardiovascular: regular rate, rhythm, no edema, HS1, HS2 normal Gastrointestinal: normal inspection, normal bowel sounds, non tender, soft, no guarding, no hernia Genitourinary: no CVA tenderness Musculoskeletal: normal inspection, back normal, normal range of motion Neurologic: normal inspection, alert, oriented x3, responsive, foreign exchange services manager III-XII nml as tested, speech normal Psychiatric: normal inspection, judgement/insight normal, mood/affect normal Impression: CKD Volume overloaded, hyperkalemia - improving Hypertension Plan: HD per Renal Antihypertensives Monitor labs PPX O2/Bipap EKG LVH, SR, no acute changes CXR Pulmonary congestion, Labs Noted, Critical Care - Objective Last 24 Hour Vital Signs Date Time Temp Pulse Resp B/P (MAP) Pulse Ox O2 Delivery O2 Flow Rate FiO2 01/16/19 12:00 Room Air 01/16/19 12:00 78.9 76 15 181/92 (121) 100 01/16/19 11:14 157/92 01/16/19 11:00 77 14 157/92 (113) 100 01/16/19 10:00 79 14 150/95 (113) 100 01/16/19 09:00 78 16 165/94 (117) 99 01/16/19 08:29 85 167/99 01/16/19 08:29 85 167/99 01/16/19 08:00 83 01/16/19 08:00 Room Air 01/16/19 08:00 98.0 85 20 167/99 (121) 100 01/16/19 07:00 76 11 144/93 (110) 94 01/16/19 06:00 147/82 01/16/19 06:00 77 9 147/82 (103) 93 01/16/19 05:00 72 16 159/80 (106) 94 01/16/19 04:00 77 01/16/19 04:00 Room Air 01/16/19 04:00 97.8 79 12 149/89 (109) 94 01/16/19 03:30 80 16 156/82 (106) 93 01/16/19 03:00 81 16 146/86 (106) 92 01/16/19 02:00 80 17 146/88 (107) 95 01/16/19 01:01 149/89 01/16/19 01:00 74 14 138/86 (103) 97 01/16/19 00:00 Room Air 01/16/19 00:00 77 01/16/19 00:00 98.0 72 17 137/86 (103) 95 01/15/19 23:00 78 18 142/83 (102) 96 01/15/19 22:30 83 17 154/90 (111) 97 01/15/19 22:12 171/97 01/15/19 22:00 86 18 171/97 (121) 96 01/15/19 21:45 80 17 158/97 (117) 95 01/15/19 21:00 88 14 177/94 (121) 99 01/15/19 20:44 87 156/101 01/15/19 20:30 86 15 156/101 (119) 97 01/15/19 20:00 Room Air 01/15/19 20:00 94 01/15/19 20:00 98.5 84 14 165/90 (115) 96 01/15/19 19:05 98 Nasal Cannula 3.0 32 01/15/19 19:00 86 22 185/112 (136) 94 01/15/19 18:44 83 199/120 01/15/19 18:44 199/120 01/15/19 18:00 79 14 185/112 (136) 96 01/15/19 17:00 75 15 169/120 (136) 97 01/15/19 16:03 98.4 75 13 174/107 (129) 95 01/15/19 16:00 79 01/15/19 16:00 Nasal Cannula 3.0 01/15/19 16:00 3.0 01/15/19 15:00 77 162/93 (116) 100 01/15/19 14:00 74 22 173/109 (130) 99 01/15/19 13:00 74 19 179/130 (146) 98 Critical Care - Subjective ROS Limited/Unobtainable: No FI02: 32 Sputum Amount: None I&O: Intake and Output 01/15/19 01/16/19 19:00 07:00 Intake Total 113.750 ml 385 ml Output Total 3000 ml 1 ml Balance -2886.250 ml 384 ml Intake Oral 80 ml 385 ml IV Total 33.750 ml Output Urine Total 1 ml Hemodialysis UF 3000 ml # Voids 1 Ranulfo Henley MD Jan 16, 2019 12:48
--- NOTE | 2019-01-16 12:55 | Nephrology Progress Note ---
Assessment/Plan Problem List: (1) CHF (congestive heart failure) (2) Hyperkalemia (3) Hypertensive crisis, unspecified (4) ESRD (end stage renal disease) (5) Missed dialysis Plan he feels better, needed tpa 10/*5 for poor cath flow, seen in dialysis working better, he insists to leave today post HD Subjective Constitutional: Reports: weakness HEENT: Reports: no symptoms Genitourinary: Reports: no symptoms Neurologic/Psychiatric: Reports: no symptoms Objective Objective Last 24 Hour Vital Signs Date Time Temp Pulse Resp B/P (MAP) Pulse Ox O2 Delivery O2 Flow Rate FiO2 01/16/19 12:00 Room Air 01/16/19 12:00 78.9 76 15 181/92 (121) 100 01/16/19 12:00 87 01/16/19 11:14 157/92 01/16/19 11:00 77 14 157/92 (113) 100 01/16/19 10:00 79 14 150/95 (113) 100 01/16/19 09:00 78 16 165/94 (117) 99 01/16/19 08:29 85 167/99 01/16/19 08:29 85 167/99 01/16/19 08:00 83 01/16/19 08:00 Room Air 01/16/19 08:00 98.0 85 20 167/99 (121) 100 01/16/19 07:00 76 11 144/93 (110) 94 01/16/19 06:00 147/82 01/16/19 06:00 77 9 147/82 (103) 93 01/16/19 05:00 72 16 159/80 (106) 94 01/16/19 04:00 77 01/16/19 04:00 Room Air 01/16/19 04:00 97.8 79 12 149/89 (109) 94 01/16/19 03:30 80 16 156/82 (106) 93 01/16/19 03:00 81 16 146/86 (106) 92 01/16/19 02:00 80 17 146/88 (107) 95 01/16/19 01:01 149/89 01/16/19 01:00 74 14 138/86 (103) 97 01/16/19 00:00 Room Air 01/16/19 00:00 77 01/16/19 00:00 98.0 72 17 137/86 (103) 95 01/15/19 23:00 78 18 142/83 (102) 96 01/15/19 22:30 83 17 154/90 (111) 97 01/15/19 22:12 171/97 01/15/19 22:00 86 18 171/97 (121) 96 01/15/19 21:45 80 17 158/97 (117) 95 01/15/19 21:00 88 14 177/94 (121) 99 01/15/19 20:44 87 156/101 01/15/19 20:30 86 15 156/101 (119) 97 01/15/19 20:00 Room Air 01/15/19 20:00 94 01/15/19 20:00 98.5 84 14 165/90 (115) 96 01/15/19 19:05 98 Nasal Cannula 3.0 32 01/15/19 19:00 86 22 185/112 (136) 94 01/15/19 18:44 83 199/120 01/15/19 18:44 199/120 01/15/19 18:00 79 14 185/112 (136) 96 01/15/19 17:00 75 15 169/120 (136) 97 01/15/19 16:03 98.4 75 13 174/107 (129) 95 01/15/19 16:00 79 01/15/19 16:00 Nasal Cannula 3.0 01/15/19 16:00 3.0 01/15/19 15:00 77 162/93 (116) 100 01/15/19 14:00 74 22 173/109 (130) 99 01/15/19 13:00 74 19 179/130 (146) 98 Intake and Output 01/15/19 01/16/19 19:00 07:00 Intake Total 113.750 ml 385 ml Output Total 3000 ml 1 ml Balance -2886.250 ml 384 ml Intake Oral 80 ml 385 ml IV Total 33.750 ml Output Urine Total 1 ml Hemodialysis UF 3000 ml # Voids 1 Laboratory Tests 01/16/19 05:50: White Blood Count 4.3L, Red Blood Count 4.39L, Hemoglobin 12.2L, Hematocrit 39.4L, Mean Corpuscular Volume 90, Mean Corpuscular Hemoglobin 27.9, Mean Corpuscular Hemoglobin Concent 31.0L, Red Cell Distribution Width 19.0H, Platelet Count 102L, Mean Platelet Volume 7.2, Neutrophils (%) (Auto) 65.0, Lymphocytes (%) (Auto) 22.1, Monocytes (%) (Auto) 9.6, Eosinophils (%) (Auto) 1.9, Basophils (%) (Auto) 1.5, Sodium Level 139, Potassium Level 6.4*H, Chloride Level 102, Carbon Dioxide Level 22, Anion Gap 15, Blood Urea Nitrogen 77H, Creatinine 18.2H, Estimat Glomerular Filtration Rate 3.3, Glucose Level 96 , Calcium Level 8.2L Height (Feet): 5 Height (Inches): 8.00 Weight (Pounds): 121 General Appearance: no apparent distress, alert EENT: normal ENT inspection Neck: normal alignment Cardiovascular: regular rhythm, systolic murmur Respiratory/Chest: normal breath sounds Abdomen: non tender, soft Neurologic: dry room attendant II-XII grossly normal Bhupendra Dent MD Jan 16, 2019 12:55
--- NOTE | 2019-01-16 12:56 | NUR ---
NURSE NOTES: Patient seen by Dr. Dent. HD ongoing at bedside. No new orders at this time. Addendum: 01/16/19 at 1258 by TK BLANCO RN patient resting in bed comfortably. No acute distress noted. No pain or SOB.
--- NOTE | 2019-01-16 14:00 | NUR ---
NURSE NOTES: HD completed. patient tolerated well. no distress noted.
--- NOTE | 2019-01-16 14:20 | NUR ---
NURSE NOTES: Called Dr. Henley and informed MD that patient completed HD, updated on pt's condition. Per MD, patient is not ready for d/c at this time.
--- NOTE | 2019-01-16 15:10 | NUR ---
NURSE NOTES: Dr. Henley, covering PMD, at bedside. Patient requested to be discharged. MD states that patient is unstable to be discharged at this time. Patient states that he will leave against medical advice. patient is alert and orientedx4, able to make his own decision. Addendum: 01/16/19 at 1700 by TK BLANCO RN Patient states that he does not need to be in the hospital to get dialysis and he can go to his dialysis center. Per Dr. Henley, patient is still not stable for discharge, needs another dialysis before he can be discharged.
--- NOTE | 2019-01-16 15:16 | NUR ---
NURSE NOTES: Patient signed AMA form. risks of leaving AMA and benefits of staying in the hospital explained to the patient. Patient verbalized understanding. All questions answered.
--- NOTE | 2019-01-16 15:40 | NUR ---
NURSE NOTES: Removed right EJ. applied pressure, dressing applied. right subclavian permacath intact, dressing intact, clean and dry. Addendum: 01/16/19 at 1643 by TK BLANCO RN All belongings checked and given to the patient.
--- NOTE | 2019-01-16 16:09 | NUR ---
NURSE NOTES: Patient left the hospital AMA via Taxi. Patient able to ambulate with steady gait.
[2019-01-16] MEDS ORDERED: NS 275ml ONE (16:14)
--- NOTE | 2019-01-16 16:20 | NUR ---
NURSE NOTES: Dr. Henley made aware that patient left AMA.
--- NOTE | 2019-01-17 08:58 | Discharge Summary ---
Discharge Summary Discharge Summary _ DATE OF ADMISSION: 01/14/2019 DATE OF DISCHARGE: 01/16/2019 DISCHARGED BY: Dr. Henley REASON FOR ADMISSION: 63 years old male with past medical history of severe hypertension, end-stage renal disease, on hemodialysis, status post C3-C4 decompression in July 2018, current smoker, presented to emergency department with increased generalized body aches, nausea and vomiting . He was dialyzed 4 days ago . Upon evaluation blood pressure was severely elevated 241/149. Laboratory work-up revealed hyperkalemia with potassium 6.5. BUN 92, creatinine 9.5. No leukocytosis, stable hemoglobin and hematocrit. Troponin negative. EKG revealed normal sinus rhythm , no acute ischemic changes. Chest x-ray revealed bilateral revealed pulmonary edema likely due to fluid overload. Patient was placed on supplemental oxygen and admitted to monitored floor for urgent hemodialysis. CONSULTANTS: social insurance analyst Dr Dent HOSPITAL COURSE: Nephrology consult was requested for urgent hemodialysis. Antihypertensive regimen was up titrated to improve blood pressure control. Supplemental oxygen provided to keep pulse oximetry above 92%. Patient initially required BiPAP for a short period of time. Bronchodilator treatment provided as needed. Patient was dialyzed serially with close monitoring of volumes and renal parameters. Blood pressure was managed with beta-perez , hydralazine nifedipine. Clonidine was on board as needed for additional control. DVT and GI prophylaxis provided. Patient felt better, but was not ready for discharge given improved but still significantly elevated blood pressure and persistent hyperkalemia. Pulse oximetry was stable on room air . Patient insisted on leaving AMA. The risks and consequences of signing AGAINST MEDICAL ADVICE were discussed with patient in detail. Patient verbalized understanding, nevertheless signed AMA form and left. FINAL DIAGNOSES: Fluid overload due to missed hemodialysis End-stage renal disease , status post missed hemodialysis Malignant hypertension with initial hypertensive emergency Congestive heart failure, acute on chronic Hyperkalemia History of substance abuse Nausea and vomiting , secondary to uremia I have been assigned to dictate discharge summary for this account. I was not involved in the patient's management. Keysha Grady NP Jan 17, 2019 08:58
--- NOTE | 2019-01-18 14:26 | Cardiology Report ---
APPROVED REPORT EKG Measurement Heart [id number] NH 130P80 [id number] Normal sinus rhythm Left ventricular hypertrophy with repolarization abnormality Abnormal ECG
--- NOTE | 2019-01-18 16:51 | NUR ---
*-* INSURANCE *-* ALL CLINICALS AND REVIEWS HAVE BEEN FAXED TO: [employer] [place]:TORRES F: [phone]
== END 2019-01-16 16:15 | disposition left against medical advice (07) | DRG 425 ==
LOC: EDBD 16:42 → EMR 17:27 → EDBEDREQSVC 18:32 → EDBEDREQ 18:34 → 2W 19:37 → EDBEDREQ 19:56 → ICU 21:18
PROC: 5A1D70Z Performance of Urinary Filtration, Intermittent, Less than 6 Hours Per Day (ICD-10-PCS; principal; 2019-01-15)
DX: E87.5 Hyperkalemia (principal); I13.2 Hypertensive heart and chronic kidney disease with heart failure and with stage 5 chronic kidney disease, or end stage renal disease; E87.79 Other fluid overload; N18.9 Chronic kidney disease, unspecified; N18.6 End stage renal disease; I50.9 Heart failure, unspecified; Z99.2 Dependence on renal dialysis; Z91.15 Patient's noncompliance with renal dialysis; Z59.0 Homelessness; F17.200 Nicotine dependence, unspecified, uncomplicated; F19.11 Other psychoactive substance abuse, in remission; I16.9 Hypertensive crisis, unspecified
CPT/HCPCS: 36415; 36600; 71045; 80048; 80053; 82803; 84484; 85025; 85610; 85730; 87081; 93005; 94640; 94660; 96374; 96375; 99291; J2405